=== PATIENT | female | born 1955 | race Caucasian/White ===

== ENCOUNTER 2020-09-20 10:05 | Emergency (ER) | payer OTHER ==
[~2020-09-20 10:05] MED LIST: LIPITOR TAB 1010 MG PO; METFORMIN HCL500 M2 PO; VITAMIN D21250 MCG PO; ZESTRIL/PRINIVI10 MG PO
[2020-09-20 10:51] LABS: RED BLOOD COUNT 4.5 M/UL (4.00-5.10); WHITE BLOOD COUNT 5.1 K/UL (4.5-11.0)
[2020-09-20 11:21] LABS: BUN/CREATININE RATIO 18 (0-10)
[2020-09-20] MEDS ORDERED: BACTROBAN OINT22 GM EXT (13:49)
[2020-09-20] MEDS ORDERED: HYDROCODON-ACE1 EAC4 PO ×2 (13:49→14:11)
== END 2020-09-20 15:00 | disposition home or self-care (01) ==
LOC: ER1 10:05
PROVIDERS: Emergency Medicine
DX: S09.90XA Unspecified injury of head, initial encounter (principal); S13.4XXA Sprain of ligaments of cervical spine, initial encounter; S33.5XXA Sprain of ligaments of lumbar spine, initial encounter; S20.211A Contusion of right front wall of thorax, initial encounter; S30.1XXA Contusion of abdominal wall, initial encounter; S40.011A Contusion of right shoulder, initial encounter; E11.9 Type 2 diabetes mellitus without complications; I10 Essential (primary) hypertension; V49.40XA Driver injured in collision with unspecified motor vehicles in traffic accident, initial encounter; Y92.410 Unspecified street and highway as the place of occurrence of the external cause
CPT/HCPCS: 70450; 71260; 72072; 72100; 72125; 73030; 73090; 80053; 81001; 82550; 82553; 83874; 84484; 85025; 93005; 96374; 96375; 99284; J2270; J2405; J7030; Q9967

== ENCOUNTER → 2020-09-26 | Outpatient (CLI) | payer OTHER ==
[~2020-09-26] MED LIST changes: +BACTROBAN OINT22 GM EXT; +HYDROCODON-ACE1 EAC4 PO
== END ==
LOC: KOH-I 11:22
DX: M25.532 Pain in left wrist (principal); M19.032 Primary osteoarthritis, left wrist
CPT/HCPCS: 73100